=== PATIENT | male | born 1980 | race Caucasian/White ===

== ENCOUNTER 2016-07-26 10:55 | Emergency (ER) | payer OTHER ==
[~2016-07-26] VITALS: Ht 175.3 cm; Wt 72.5 kg
[~2016-07-26 10:55] MED LIST: MOTRIN800 MG PO; NORCO 5/3251 TABLET PO
[2016-07-26 11:09] VITALS: BP 140/77
[2016-07-26] MEDS ORDERED: MOBIC7.5 MG PO (12:47)
== END 2016-07-26 13:12 | disposition home or self-care (01) ==
LOC: EME 10:55
DX: S83.92XA Sprain of unspecified site of left knee, initial encounter (principal); Y93.01 Activity, walking, marching and hiking
CPT/HCPCS: 73564; 99281; 99284